=== PATIENT | female | born 1980 | race Caucasian/White ===

== ENCOUNTER → 2024-02-06 12:55 | Outpatient (REF) | payer OTHER, SELFPAY | LOC: WDC 12:55 | PROVIDERS: ATTENDING PHYSICIAN Nurse Practitioner Family | DX: Z12.31 Encounter for screening mammogram for malignant neoplasm of breast (principal) | CPT/HCPCS: 77063; 77067 ==

== ENCOUNTER → 2025-02-07 17:58 | Outpatient (REF) | payer BC, SELFPAY | LOC: WDC 17:58 | PROVIDERS: ATTENDING PHYSICIAN Nurse Practitioner Family | DX: Z12.31 Encounter for screening mammogram for malignant neoplasm of breast (principal) | CPT/HCPCS: 77063; 77067 ==